=== PATIENT | male | born 1980 | race African-American/Black ===

== ENCOUNTER 2021-06-22 08:54 | Emergency (ER) | payer OTHER ==
[~2021-06-22] VITALS: Ht 175.3 cm; Wt 102.1 kg
[2021-06-22 09:15] LABS: URINE BILIRUBIN NEGATIVE (Negative); URINE BLOOD NEGATIVE (Negative); URINE CLARITY CLEAR; URINE COLOR YELLOW; URINE GLUCOSE-RANDOM* 3+ (Negative); URINE KETONES NEGATIVE (Negative); URINE NITRITE-REFLEX NEGATIVE (Negative); URINE PROTEIN (DIPSTICK) NEGATIVE (Negative)
[2021-06-22 09:19] LABS: URINE LEUKOCYTES-REFLEX 1+ (Negative)
[2021-06-22 09:44] LABS: CASTS None Seen /LPF (None Seen); SQUAMOUS 4-10 Moderate /LPF (0-3)
[2021-06-22 09:45] LABS: BACTERIA-REFLEX 1-9 Few /HPF (None Seen); CRYSTALS None Seen /LPF (None Seen); URINE RBC None Seen /HPF (NONE SEEN)
[2021-06-22] MEDS ORDERED: KEFLEX750 MG PO (10:25)
[2021-06-22] MEDS ORDERED: LIDODERM1 EACH TOP (10:25)
[2021-06-22 10:32] VITALS: BP 142/89
[2021-06-24 20:06] LABS: SYPHILIS AB Non Reactive (Non Reactive)
== END 2021-06-22 10:32 | disposition home or self-care (01) ==
LOC: ER 08:54
PROVIDERS: Student in an Organized Health Care Education/Training Program
DX: N39.0 Urinary tract infection, site not specified (principal); R21 Rash and other nonspecific skin eruption; E11.9 Type 2 diabetes mellitus without complications; F17.210 Nicotine dependence, cigarettes, uncomplicated